=== PATIENT | male | born 1945 | race Caucasian/White ===

== ENCOUNTER 2017-05-16 11:19 | Emergency (ER) | payer MEDICARE ==
--- NOTE | 2017-05-16 12:03 | EDM.PDOC ---
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 however bladder scan done in the clinic only shows 40 mL a urine initial lab work showed potassium 6.1 and a creatinine of 16, patient complains of bladder fullness but pain is tolerable denies any other symptoms at this time, states he's had difficulty with urination for the last 3 days Abdominal Pain Score (Numeric/FACES): 3 - Related Data Allergies Allergy/AdvReac Type Severity Reaction Status Date / Time No Known Allergies Allergy Verified 09/22/16 12:41 Past Medical History HEENT History: Reports: Impaired Vision Cardiovascular History: Reports: High Cholesterol, Hypertension Respiratory History: Reports: Pneumothorax Genitourinary History: Reports: BPH Endocrine/Metabolic History: Reports: Hypothyroidism - Past Surgical History GI Surgical History: Reports: Appendectomy Musculoskeletal Surgical History: Reports: Hip Replacement Social & Family History - Tobacco Use Smoking Status *Q: Unknown Ever Smoked - Recreational Drug Use Recreational Drug Use: No ED ROS GENERAL - Review of Systems Review Of Systems: See Below Constitutional: Reports: No Symptoms HEENT: Reports: No Symptoms Respiratory: Reports: No Symptoms Cardiovascular: Reports: No Symptoms GI/Abdominal: Reports: No Symptoms : Reports: Urinary Retention Musculoskeletal: Reports: No Symptoms Skin: Reports: No Symptoms ED EXAM, RENAL/ - Physical Exam Exam: See Below Exam Limited By: No Limitations General Appearance: Alert, WD/WN, No Apparent Distress Respiratory/Chest: No Respiratory Distress GI/Abdominal: Soft, Non-Tender Course - Vital Signs Last Recorded V/S: Last Vital Signs Temp 99.0 F 05/16/17 14:18 Pulse 71 05/16/17 14:18 Resp 15 05/16/17 14:18 BP 158/93 H 05/16/17 14:18 Pulse Ox 94 L 05/16/17 14:18 - Orders/Labs/Meds Orders: Active Orders 24 hr Category Date Time Status EKG Documentation Completion [RC] ASDIRECTED Care 05/16/17 12:22 Active Insert [place] Catheter [Insert Urinary Catheter] [OM.PC] Care 05/16/17 12:00 Ordered Q24H Urinary Catheter Assessment [RC] ASDIRECTED Care 05/16/17 11:58 Active EKG 12 Lead [EK] Stat Ther 05/16/17 12:22 Ordered Labs: Laboratory Tests 05/16/17 05/16/17 05/16/17 Range/Units 12:27 12:27 12:27 WBC 7.4 (4.5-11.0) K/uL RBC 4.15 L (4.30-5.90) M/uL Hgb 12.0 (12.0-15.0) g/dL Hct 34.9 L (40.0-54.0) % MCV 84 (80-98) fL MCH 29 (27-31) pg MCHC 34 (32-36) % Plt Count 128 L (150-400) K/uL Neut % (Auto) 62 (36-66) % Lymph % (Auto) 14 L (24-44) % Story % (Auto) 16 H (2-6) % Eos % (Auto) 7 H (2-4) % Baso % (Auto) 1 (0-1) % Sodium (140-148) mmol/L Potassium (3.6-5.2) mmol/L Chloride (100-108) mmol/L Carbon Dioxide (21-32) mmol/L Anion Gap (5.0-14.0) mmol/L BUN (7-18) mg/dL Creatinine (0.8-1.3) mg/dL Est Cr Clr Drug Dosing mL/min Estimated GFR (MDRD) (>60) BUN/Creatinine Ratio Glucose (74-106) mg/dL Calcium (8.5-10.1) mg/dL Magnesium (1.8-2.4) mg/dL Total Bilirubin (0.2-1.0) mg/dL AST (15-37) U/L ALT (12-78) U/L Alkaline Phosphatase (46-116) U/L Total Protein (6.4-8.2) g/dL Albumin (3.4-5.0) g/dL Globulin (2.3-3.5) g/dL Albumin/Globulin Ratio (1.2-2.2) 05/16/17 Range/Units 16:00 WBC (4.5-11.0) K/uL RBC (4.30-5.90) M/uL Hgb (12.0-15.0) g/dL Hct (40.0-54.0) % MCV (80-98) fL MCH (27-31) pg MCHC (32-36) % Plt Count (150-400) K/uL Neut % (Auto) (36-66) % Lymph % (Auto) (24-44) % Story % (Auto) (2-6) % Eos % (Auto) (2-4) % Baso % (Auto) (0-1) % Sodium 139 L (140-148) mmol/L Potassium 4.3 (3.6-5.2) mmol/L Chloride 103 (100-108) mmol/L Carbon Dioxide 21 (21-32) mmol/L Anion Gap 19.3 H (5.0-14.0) mmol/L BUN 75 H (7-18) mg/dL Creatinine 11.0 H* (0.8-1.3) mg/dL Est Cr Clr Drug Dosing 6.36 mL/min Estimated GFR (MDRD) 5 L (>60) BUN/Creatinine Ratio Glucose 98 (74-106) mg/dL Calcium 8.4 L (8.5-10.1) mg/dL Magnesium (1.8-2.4) mg/dL Total Bilirubin (0.2-1.0) mg/dL AST (15-37) U/L ALT (12-78) U/L Alkaline Phosphatase (46-116) U/L Total Protein (6.4-8.2) g/dL Albumin (3.4-5.0) g/dL Globulin (2.3-3.5) g/dL Albumin/Globulin Ratio (1.2-2.2) Meds: Medications Discontinued Medications Generic Name Dose Route Start Last Admin Trade Name Freq PRN Reason Stop Dose Admin Sodium Polystyrene Sulfonate 30 gm 05/16/17 14:01 05/16/17 14:12 Kayexalate PO 05/16/17 14:02 30 gm NOW ONE Administration Departure - Departure Time of Disposition: 16:29 Disposition: Home, Self-Care 01 Condition: Fair Clinical Impression: Urinary retention Acute renal failure Qualifiers: Acute renal failure type: unspecified Qualified Code(s): N17.9 - Acute kidney failure, unspecified - Discharge Information Referrals: PCP,None [Primary Care Provider] - Forms: ED Department Discharge Additional Instructions: Drink fluids with some electrolytes such as bullion, sports drinks, please follow-up with the clinic tomorrow to recheck your kidney function, please follow-up with your primary care provider for definitive treatment of the prostate - My Orders Last 24 Hours: My Active Orders 05/16/17 11:58 Urinary Catheter Assessment [RC] ASDIRECTED 05/16/17 12:00 Insert [place] Catheter [Insert Urinary Catheter] [OM.PC] Q24H 05/16/17 12:22 EKG Documentation Completion [RC] ASDIRECTED EKG 12 Lead [EK] Stat - Assessment/Plan Last 24 Hours: My Active Orders 05/16/17 11:58 Urinary Catheter Assessment [RC] ASDIRECTED 05/16/17 12:00 Insert [place] Catheter [Insert Urinary Catheter] [OM.PC] Q24H 05/16/17 12:22 EKG Documentation Completion [RC] ASDIRECTED EKG 12 Lead [EK] Stat Plan: Assessment Acuity = acute Site and laterality = acute urinary obstruction causing acute renal failure Etiology = secondary to BPH Manifestations = none Location of injury = Home Lab values = initial potassium 6.2 consistent with hyperkalemia he responded to treatment with Kayexalate potassium return to normal range 4.3, initial creatinine was 16.2 however after placement of [place] catheter 3 L of urine out creatinine declined to 14.7 after 2 more hours total of 6 L out creatinine declined to 11.0, Plan He remained asymptomatic while in the emergency department plan is to have him push fluids with electrolytes leg bag will remain in place he will follow-up in the clinic for recheck of his potassium and creatinine in the meantime is going to follow-up with his primary care provider at the [facility] for definitive treatment of his BPH Patient was in agreement with the plan all questions were answered, they were instructed to return to the emergency department or call for worsening symptoms. This note was dictated using [employer] voice recognition software please call with any questions.
[2017-05-16] MEDS ORDERED: Sodium Polystyrene Sulfonate 15 GM/60 ML Susp 60 ML Bot PO ONE (14:01)
[2017-05-16 16:49] VITALS: BP 137/90
== END 2017-05-16 16:54 | disposition home or self-care (01) ==
LOC: JP.ED 11:19
DX: N17.9 Acute kidney failure, unspecified (principal); N40.1 Benign prostatic hyperplasia with lower urinary tract symptoms; R33.8 Other retention of urine; I10 Essential (primary) hypertension; E03.9 Hypothyroidism, unspecified; Z90.49 Acquired absence of other specified parts of digestive tract; Z96.649 Presence of unspecified artificial hip joint
CPT/HCPCS: 36415; 51702; 51798; 80048; 80053; 83735; 85025; 93005; 93010; 99284; A9270

== ENCOUNTER 2025-09-08 10:10 | Emergency (ER) | payer MEDICARE ==
[2025-09-08 10:29] LABS: BASOPHILS ABSOLUTE AUTO 0.04 K/uL (0.00-0.10); BASOPHILS PERCENT AUTO 0.3 % (0.1-1.3); EOSINOPHILS ABSOLUTE AUTO 0.02 K/uL (0.00-0.40); EOSINOPHILS PERCENT AUTO 0.1 % (0.0-5.4); IMMATURE GRAN ABSOLUTE AUTO 0.16 K/uL (0.00-0.23); IMMATURE GRAN PERCENT AUTO 1.1 % (0.0-0.7); LYMPHOCYTES ABSOLUTE AUTO 0.49 K/uL (0.8-3.3); LYMPHOCYTES PERCENT AUTO 3.4 % (11.4-47.7); MONOCYTES ABSOLUTE AUTO 1.39 K/uL (0.20-0.90); MONOCYTES PERCENT AUTO 9.7 % (3.3-12.6); NEUTROPHILS ABSOLUTE AUTO 12.21 K/uL (1.0-7.6); NEUTROPHILS PERCENT AUTO 85.4 % (40.0-78.1); PLATELET COUNT,PLT 117 K/uL (130-375); RED BLOOD CELL COUNT 5.69 M/uL (4.14-5.76); WHITE BLOOD CELL COUNT,WBC 14.3 K/uL (3.2-11.0)
[2025-09-08 10:40] LABS: APPEARANCE,URINE CLOUDY (CLEAR); GLUCOSE,URINE NEGATIVE (NEGATIVE); OCCULT BLOOD,URINE LARGE (NEGATIVE)
[2025-09-08 10:41] LABS: INR 1.4
[2025-09-08] MEDS: Ondansetron 4 MG/2 ML SDV IVPUSH ONE (10:41)
[2025-09-08 10:47] LABS: A/G RATIO 0.7 (1.2-2.2); ALANINE AMINOTRANSFERASE,ALT 42 U/L (12-78); ASPARTATE AMNIOTRANSFERASE,AST 49 U/L (15-37); BILIRUBIN TOTAL 2.4 mg/dL (0.2-1.0); CARBON DIOXIDE,CO2 20 mmol/L (21-32); CHLORIDE,CL 103 mmol/L (100-108); EST CRCL DRUG DOSING (CG) 6.27 mL/min; ESTIMATED GFR 5 mL/min (>60); GLUCOSE RANDOM 174 mg/dL (74-106); POTASSIUM,K 4.0 mmol/L (3.6-5.2); PROTEIN TOTAL,TP 7.2 g/dL (6.4-8.2); SODIUM,NA 143 mmol/L (140-148)
[2025-09-08 10:49] LABS: BLOOD UREA NITROGEN,BUN 102 mg/dL (7-18); CREATININE 9.7 mg/dL (0.8-1.3); TROPONIN I HIGH SENSITIVITY 221.4 pg/mL (<=60.3)
[2025-09-08 10:54] LABS: SQUAMOUS EPITHELIAL CELLS,UR NOT SEEN /HPF; UROTHELIAL CELLS,URINE NOT SEEN /HPF
[2025-09-08] MEDS: Diltiazem 25 MG/5 ML SDV IVPUSH ONE (10:57)
[2025-09-08] MEDS: Diltiazem 100 MG in Sodium Chloride 0.9% 100 ML IV SCH (11:11)
[2025-09-08 16:44] VITALS: BP 111/71; PULSE 99
== END 2025-09-08 18:04 ==
LOC: JP.ED 10:10
DX: A41.9 Sepsis, unspecified organism (principal); N39.0 Urinary tract infection, site not specified; N28.9 Disorder of kidney and ureter, unspecified; I10 Essential (primary) hypertension; E78.00 Pure hypercholesterolemia, unspecified; E03.9 Hypothyroidism, unspecified; Z79.899 Other long term (current) drug therapy
CPT/HCPCS: 36415; 51702; 70450; 71045; 74176; 80053; 80307; 81001; 82140; 83605; 84484; 85025; 85610; 87040; 87077; 87086; 87088; 87186; 87428; 93005; 96361; 96365; 96366; 96375; 99284; 99285; A9270; J1163; J2405; J2543; J3490; J7030